=== PATIENT | female | born 1950 | race Caucasian/White ===

== ENCOUNTER 2023-09-16 14:29 | Outpatient (AMB) | payer MEDICARE, SELFPAY ==
--- NOTE | 2023-09-16 14:31 | AM.OFFWIN_ITS ---
Intake Vital Signs 09/16/23 14:32 Height 5 ft 1 in Weight 142 lb 2 oz BMI 26.9 BP 128/80 Blood Pressure Location Rt brachial Position Sitting Pulse 76 Pulse Source Pulse Oximeter Temp 98 F Temp Source Oral Pulse Oximetry (%) 97 Oxygen Delivery Method Room Air Intake Visit Reasons: EP arthritis pain in back Intake Note: Pt is here today states she was diagnosed Wednesday with arthritis pain in her back. Patient Tobacco Use Status: Never used Tobacco Allergies clindamycin [From Cleocin] Adverse Reaction (Severe, Verified 09/16/23 14:34) Diarrhea Do you need a note to return to daycare/school/sports/work: No HPI HPI Comments History of Present Illness Details 72 y/o female patient who presents to [facility] in clinic with c/o neck and back pain due to Arthritis. Pt was seen by her PCP @ [facility] in [place] last Wednesday and had Xrays done (pt does not know the results). She has been taking Acetaminophen 650 mg daily with minimal relief. [facility] Social History Patient Tobacco Use Status: Never used Tobacco Review of Systems Const All systems reviewed & are unremarkable except as noted in HPI and below Physical Exam Vital Signs: Last Vital Signs Temp 98 F 09/16/23 14:32 Pulse 76 09/16/23 14:32 BP 128/80 09/16/23 14:32 Pulse Ox 97 09/16/23 14:32 Oxygen Delivery Method Room Air 09/16/23 14:32 BMI result Body Mass Index 26.9 Const General: comfortable and no acute distress Nutritional Appearance: thin Orientation/consciousness: patient oriented x3 Back/Spine/Pelvis Back: back tenderness Cervical Spine: cervical ROM normal and cervical muscular tenderness Thoracic/Lumbar Spine: thoraco-lumbar ROM normal, thoracic spinal tenderness and lumbar spinal tenderness Neuro General: patient oriented x3, gait normal and moves all extremities Psych Speech and movement: Normal speech and movement present Assessment & Plan Assessment & Plan (1) Arthralgia of back: Code(s): M54.9 - Dorsalgia, unspecified Plan: - F/u with [facility] medicine as scheduled - Rest - OTC Pain relief patches such as Lidocaine - Acetaminophen for pain relief. Medications: New acetaminophen 1,000 mg (2 x 500 mg) PO Q6H PRN 30 caps 0RF pain, moderate M54.9 - Dorsalgia, unspecified Coding Level of Care Code New Pt Level 3 (87638) Diagnoses Arthralgia of back M54.9 Time Spent (min) 15
[2023-09-16 14:32] VITALS: BP 128/80; PULSE 76; TEMP 36.6; O2SAT 97; BMI 26.9
== END 2023-09-16 14:57 | disposition home or self-care (01) ==
PROVIDERS: Visit Provider Nurse Practitioner Family
DX: M54.9 Dorsalgia, unspecified (principal)
CPT/HCPCS: 99203